=== PATIENT | female | born 1970 ===

== ENCOUNTER 2021-06-13 10:19 | Emergency (ER) | payer OTHER ==
[~2021-06-13] VITALS: Ht 165.1 cm; Wt 63.5 kg
--- NOTE | 2021-06-13 10:34 | NUR ---
Dr Hoang at the bedside for MSE.
[2021-06-13] MEDS ORDERED: PANTOPRAZOLE SODIUM 40 MG VIAL IV ONE (10:45)
[2021-06-13] MEDS ORDERED: ONDANSETRON 4 MG/2 ML VIAL IV ONE (10:45)
[2021-06-13] MEDS ORDERED: IV NORMAL SALINE 1000 ML BAG IV ONE (10:45)
[2021-06-13] MEDS ORDERED: MORPHINE SULFATE 2 MG/1 ML DISP.SYRIN IV ONE (10:45)
[2021-06-13] MEDS ORDERED: MORPHINE SULFATE 4 MG/1 ML DISP.SYRIN ONE ×2 (11:02→11:54)
[2021-06-13 11:03] LABS: HEMATOCRIT 40.1 % (31.2-41.9); MEAN CORPUSCULAR HEMOGLOBIN 30.9 uug (24.7-32.8); MEAN CORPUSCULAR VOLUME 90.5 fL (75.5-95.3); PLATELET COUNT (AUTO) 173 K/uL (179-408)
[2021-06-13] MEDS ORDERED: ONDANSETRON 4 MG/2 ML VIAL ONE (11:03)
[2021-06-13] MEDS ORDERED: PANTOPRAZOLE SODIUM 40 MG VIAL ONE (11:03)
[2021-06-13 11:11] LABS: CREATININE 0.9 mg/dL (0.6-1.3); POTASSIUM 4.3 mmol/L (3.5-5.1)
[2021-06-13 11:16] LABS: BILIRUBIN,DIRECT 0.1 mg/dL (0.0-0.2); BILIRUBIN,TOTAL 0.6 mg/dL (0.2-1.0); TOTAL PROTEIN, SERUM 7.7 g/dL (6.4-8.2)
[2021-06-13 11:45] LABS: *BILIRUBIN,URIN NEGATIVE (NEGATIVE); *BLOOD, URINE NEGATIVE (NEGATIVE); *CLARITY,URINE CLEAR (CLEAR); *COLOR,URINE YELLOW (YELLOW); *KETONES,URINE TRACE (NEGATIVE); *UROBILINOGEN,URINE 0.2 E.U./dl (NORMAL); LEUKOCYTE ESTERASE ,URINE NEGATIVE (NEGATIVE); NITRITE, URINE NEGATIVE (NEGATIVE); PH,URINE 5.5 (5.0-8.0); UGLUCOSE NEGATIVE (NEGATIVE)
[2021-06-13] MEDS ORDERED: MORPHINE SULFATE 4 MG/1 ML DISP.SYRIN IV ONE (12:00)
--- NOTE | 2021-06-13 12:06 | NUR ---
Pt out of ER for CT scan.
--- NOTE | 2021-06-13 12:20 | NUR ---
Pt back from Ct, states her pain is better.
[2021-06-13 13:11] VITALS: BP 112/70
--- NOTE | 2021-06-13 13:29 | NUR ---
IV removed. Catheter intact and site benign. Pressure and 4x4 gauze applied to site. No bleeding noted.
== END 2021-06-13 13:31 | disposition home or self-care (01) ==
LOC: ER 10:21
DX: R10.2 Pelvic and perineal pain (principal); R10.13 Epigastric pain; R10.11 Right upper quadrant pain; Z87.898 Personal history of other specified conditions
CPT/HCPCS: 36415; 74176; 76705; 80048; 80076; 81003; 83690; 85025; 93005; 96361; 96374; 96375; 96376; 99285; C9113; J2270 ×2; J2405; A4663; J7030